=== PATIENT | female | born 1955 | race Caucasian/White ===

== ENCOUNTER → 2018-05-31 | Outpatient (CLI) | payer BC ==
--- NOTE | 2018-05-31 23:32 | BD ---
EXAMINATION TYPE: Axial Bone Density DATE OF EXAM: 05/31/2018 COMPARISON: 05.30.2016 CLINICAL HISTORY: 62 YR OLD FEMALE.....ICD-10 CODE: C50.412 BREAST CANCER, M85.8 OSTEOPENIA Height: 64.4 Weight: 214 FRAX RISK QUESTIONS: Glucocorticoids (More than 3mos): YES (Ex: prednisone, prednisolone, methylprednisolone, dexamethasone, and hydrocortisone). History of Fracture in Adulthood: YES RISK FACTORS HISTORY OF: HX OF FRACTURE TO LT GREAT TOE WITH SURGICAL REPAIR, 2017 Active: NO Diet low in dairy products/other sources of calcium: NO Postmenopausal woman: YES AT AGE 54 MEDICATIONS: Prednisone or other steroids: INHALERS FOR ASTHMA, AND CORTIZONE INJECTIONS INTO JOINTS How Long: ON AND OFF FOR YRS Thyroid Medications: CYTOMEL, FOR THYROID How Lon YRS Additional Medications: VIT D, CRESTOR, BP MEDS, CYMBALTA, WELLBUTRIN, XANAX, ADDERALL,PROVIGIL, FEMA RA, HX OF CHEMO AND RADIATION, RADIOACTIVE IODINE WITH THYROID CA, Additional History: BILAT BREAST CANCER, THYROID CANCER, BILAT MASTECTOMIES EXAM MEASUREMENTS: Bone mineral densitometry was performed using the [employer] System. Bone mineral density as measured about the Lumbar spine is: ----- L1-L4(G/cm2): 1.105 T Score Values are as follows: ----- L1: -1.4 ----- L2: -0.7 ----- L3: 0.1 ----- L4: 0.6 ----- L1-L4: -0.2 Bone mineral density has: Increased 8.2% since study of: 05.30.2016 Bone mineral density about the R hip (g/cm2): 0.929 Bone mineral density about the L hip (g/cm2): 0.899 T Score values are as follows: -----R Neck: -1.2 -----L Neck: -1.5 -----R Total: -0.6 -----L Total: -0.9 Bone mineral density has: Decreased -1.3% since study of: 05.30.2016 FRAX%s: THERE IS A 19.9% CHANCE OF A MAJOR OSTEOPOROTIC FX AND A 2.0% FOR HIP FX.....PROBABILITY O F FX IN 10 YRS TIME IMPRESSION: Osteopenia (T Score between -2.5 and -1). There is slightly increased risk of fracture and the patient may be considered for treatment. Re-Screen 2-5 years. NOTE: T-SCORE=SD OF THE YOUNG ADULT MEAN.
== END | disposition home or self-care (01) ==
LOC: RADBDWWP 15:14
PROVIDERS: ATTEND Internal Medicine Hematology & Oncology
DX: C50.412 Malignant neoplasm of upper-outer quadrant of left female breast (principal); M85.80 Other specified disorders of bone density and structure, unspecified site; Z79.890 Hormone replacement therapy
CPT/HCPCS: 77080

== ENCOUNTER → 2018-06-12 | Outpatient (CLI) | payer BC ==
--- NOTE | 2018-06-13 10:33 | XR ---
EXAMINATION TYPE: XR chest 2V DATE OF EXAM: 06/12/2018 COMPARISON: Prior chest x-ray 05/24/2016 HISTORY: Breast carcinoma TECHNIQUE: Frontal and lateral views of the chest are obtained. FINDINGS: Breast prosthesis is noted. Patient is post lap band. Surgical staple over the right lower chest. No evident pneumothorax or pleural effusion. There is eventration of the right hemidiaphragm. Cardiac mediastinal silhouette, pulmonary vascularity and ramandeep are stable. No pneumonia. Prominent l hilton volumes again noted. IMPRESSION: Postop changes. No acute cardiopulmonary disease is evident.
== END | disposition home or self-care (01) ==
LOC: RADXRMAIN 15:26
PROVIDERS: ATTEND Internal Medicine Hematology & Oncology
DX: C50.412 Malignant neoplasm of upper-outer quadrant of left female breast (principal); E07.89 Other specified disorders of thyroid; G43.909 Migraine, unspecified, not intractable, without status migrainosus; Z17.0 Estrogen receptor positive status [ER+]; Z98.890 Other specified postprocedural states
CPT/HCPCS: 71046

== ENCOUNTER → 2018-08-28 | Outpatient (CLI) | payer BC ==
--- NOTE | 2018-08-28 16:58 | US ---
EXAMINATION TYPE: US abdomen complete DATE OF EXAM: 08/28/2018 COMPARISON: NONE CLINICAL HISTORY: R74.8 Abnormal levels of other serum enzymes. abn labs, GB removed 2016, hx of micah st cancer and thyroid cancer EXAM MEASUREMENTS: Liver Length: 13.7 cm CHD: 0.4 cm Spleen: 10.8 cm Right Kidney: 9.2 x 4.2 x 3.9 cm Left Kidney: 8.9 x 3.9 x 3.7 cm Pancreas: Obscured by bowel gas Liver: wnl Gallbladder: Surgically absent Evidence for sonographic Sanchez's sign: neg CBD: Obscured by overlying bowel gas CHD: wnl Spleen: Couple of echogenic foci within the spleen may be splenic granuloma. Right Kidney: wnl Left Kidney: wnl Upper IVC: wnl Abd Aorta: Proximal portion obscured by overlying bowel gas IMPRESSION: 1. No acute ultrasound abnormality
== END | disposition home or self-care (01) ==
LOC: RADUSWWP 07:27
PROVIDERS: ATTEND Internal Medicine Endocrinology, Diabetes & Metabolism
DX: R74.8 Abnormal levels of other serum enzymes (principal)
CPT/HCPCS: 76700

== ENCOUNTER → 2019-01-08 | Outpatient (CLI) | payer BC ==
[2019-01-08 23:15] LABS: ALT 22 U/L (8-44); AST 21 U/L (13-35); Albumin/Globulin Ratio 2.61 (1.60-3.17); Alkaline Phosphatase 92 U/L (41-126); Bilirubin, Conjugated <0.20 mg/dL (0.20-0.40); Globulin 1.8 g/dL (1.6-3.3); Total Bilirubin 0.3 mg/dL (0.3-1.2); Total Protein 6.5 g/dL (6.2-8.2)
== END | disposition home or self-care (01) ==
LOC: LABWHC1 16:27
DX: R74.8 Abnormal levels of other serum enzymes (principal)
CPT/HCPCS: 36415; 80076; 82728; 83516

== ENCOUNTER → 2019-02-19 | Outpatient (CLI) | payer BC ==
--- NOTE | 2019-02-20 14:29 | XR ---
EXAMINATION TYPE: XR chest 2V DATE OF EXAM: 02/19/2019 COMPARISON: 06/12/2018 TECHNIQUE: PA and lateral views submitted. HISTORY: Pain FINDINGS: The lungs are clear and there is no pneumothorax, pleural effusion, or focal pneumonia. Right-sided pleural-based thickening noted. No overt failure. Surgical clips overlying the left breast and bilat eral hilar regions. Degenerative change of the spine. Surgical clips in the abdomen. LAP-BAND suggest ed. IMPRESSION: 1. No acute process.
== END ==
LOC: RADXRMAIN 16:50
PROVIDERS: ATTEND Physical Medicine & Rehabilitation
DX: M54.2 Cervicalgia (principal); Z85.3 Personal history of malignant neoplasm of breast
CPT/HCPCS: 71046

== ENCOUNTER → 2019-05-08 | Outpatient (CLI) | payer BC ==
[2019-05-08 19:27] LABS: Albumin 4.8 g/dL (3.80-4.90); Albumin/Globulin Ratio 2.4 (1.60-3.17); Bilirubin, Conjugated 0.2 mg/dL (0.20-0.40); Bilirubin,Unconjugated 0.4 mg/dL; Total Bilirubin 0.6 mg/dL (0.3-1.2); Total Protein 6.8 g/dL (6.2-8.2)
== END | disposition home or self-care (01) ==
LOC: LABWHC1 12:24
PROVIDERS: ATTEND Internal Medicine Gastroenterology
DX: R74.8 Abnormal levels of other serum enzymes (principal)
CPT/HCPCS: 36415; 80076; 82728; 83516

== ENCOUNTER 2019-08-28 10:46 | Day surgery (SDC) | payer BC ==
[2019-08-23 16:25] VITALS: BMI 30.4
[~2019-08-28 10:46] MED LIST: LACTATED RINGERS 1,000 ML IV SCH
[2019-08-28 11:04] VITALS: TEMP 97
[2019-08-28] MEDS ORDERED: LIDOCAINE 1% 20 ML VIAL (10MG/ML) FOR IV START INTRADERMA ONE (11:07)
[2019-08-28] MEDS ORDERED: PROPOFOL 10 MG/ML 20 ML VIAL IV ONE (12:14)
[2019-08-28] MEDS ORDERED: LIDOCAINE 1% INJ 10MG/ML (20 ML MDV) ONE (12:14)
--- NOTE | 2019-08-28 12:25 | P.PCN ---
Date of Procedure: 08/28/19 Procedure(s) Performed: BRIEF HISTORY: Patient is a 63-year-old, pleasant, female, scheduled for an upper endoscopy as a part of evaluation of intermittent dysphagia to solids and pills for the last 6 months duration. Usually episodes with large pills and sometimes with certain dry solids. She is hence scheduled for an upper endoscopy with a possible dilation.. PROCEDURE PERFORMED: Esophagogastroduodenoscopy with biopsy. PREOPERATIVE DIAGNOSIS: Dysphagia to solids for the last 6 months duration. IV sedation per anesthesia. PROCEDURE: After informed consent was obtained, the patient was brought into the endoscopy unit. IV sedation was administered by Anesthesia under continuous monitoring. Initially the Olympus GIF-140 video endoscope was inserted into the mouth. There was evidence of recurrent function noted. Esophagus intubated mild to moderate difficulty because of tightness at the cricopharyngeus.. It was gradually advanced into the stomach and duodenum and carefully examined. The bulb and the second part of the duodenum appeared normal. The scope at this time was withdrawn to the stomach, adequately insufflated with air, and upon careful examination, mucosa of the antrum had gastritis and biopsies were done from this area. The, body, cardia and the fundus appeared normal. The scope was then withdrawn into the esophagus. The GE junction was located at 39 cm from the incisors. Small sliding type hiatal hernia noted. The esophagus appeared normal. There were no erosions or ulcerations seen, no evidence of esophageal stricture and the patient tolerated the procedure well. IMPRESSION: 1. Tightness at the cricopharyngeus suggestive of oropharyngeal dysfunction wh ich appears to be the cause of dysphagia. 2. No evidence of esophageal stricture 3. Mild antral gastritis 4. Small sliding type hiatal hernia. RECOMMENDATIONS: The findings of this examination were discussed with the patient as well as a family. She was advised to follow with the biopsy results. Discussed with the patient about the pharyngeal dysfunction and body the diet modification..
[2019-08-28 12:51] VITALS: RESP 18
[2019-08-28 13:10] VITALS: BP 98/63; PULSE 74
== END 2019-08-28 13:10 | disposition home or self-care (01) ==
LOC: ORWHC2ENDO 10:46
PROVIDERS: ATTEND Internal Medicine Gastroenterology
DX: K20.0 Eosinophilic esophagitis (principal); K29.50 Unspecified chronic gastritis without bleeding; J39.2 Other diseases of pharynx; K44.9 Diaphragmatic hernia without obstruction or gangrene; C73 Malignant neoplasm of thyroid gland; F41.9 Anxiety disorder, unspecified; F32.9 Major depressive disorder, single episode, unspecified; E89.0 Postprocedural hypothyroidism; Z88.8 Allergy status to other drugs, medicaments and biological substances; Z79.890 Hormone replacement therapy; Z98.84 Bariatric surgery status; Z90.13 Acquired absence of bilateral breasts and nipples; Z90.49 Acquired absence of other specified parts of digestive tract; Z85.3 Personal history of malignant neoplasm of breast
CPT/HCPCS: 88305; 43239; J2001; J2704

== ENCOUNTER → 2020-05-04 | Outpatient (CLI) | payer BC ==
--- NOTE | 2020-05-04 14:46 | BD ---
EXAMINATION TYPE: Axial Bone Density DATE OF EXAM: 05/04/2020 COMPARISON: Prior DEXA bone scan May 31, 2018 CLINICAL HISTORY: Breast cancer and osteopenia. Height: 5 FT 4 3/4 IN Weight: 188 FRAX RISK QUESTIONS: Alcohol (3 or more units per day): NO Family History (Parent hip fracture): NO Glucocorticoids (More than 3mos): NO (Ex: prednisone, prednisolone, methylprednisolone, dexamethasone, and hydrocortisone). History of Fracture in Adulthood: YES Secondary Osteoporosis: 1. Type 1 Diabetes: NO 2. Hyperthyroidism: NO 3. Menopause before 45: NO 4. Malnutrition: NO 5. Chronic liver disease: NO Rheumatoid Arthritis: NO Current Tobacco Use: NO RISK FACTORS HISTORY OF: Surgery to Spine/Hip(right/left)/Wrist (right/left): RT TENDON REPAIR When: AGE 30 Family History of Osteoporosis: NO Active: YES Postmenopausal woman: AGE 54 MEDICATIONS: Thyroid Medications: YES Which medication: ARMOUR THYROID How Lon-23 YEARS Additional Medications: ARMOUR THYROID, DRISDOL,CRESTOR, FEMARA, IRON, COREG, COZAAR, WELLBUTRIN, SEB LIFY, LAMICTAL, ADDERALL, XANAX, Additional History: HISTORY OF THYROID REMOVED WITH RADIOACTIVE IODINE, BREAST CANCER CHEMO EXAM MEASUREMENTS: Bone mineral densitometry was performed using the [employer] System. Bone mineral density as measured about the Lumbar spine is: ----- L1-L4(G/cm2): 1.113 T Score Values are as follows: ----- L2: -1.2 ----- L3: -0.3 ----- L4: 0.0 ----- L1-L4: -0.6 Bone mineral density has: DECREASED -5.3 % since study of: 2017 Bone mineral density about the R hip (g/cm2): 0.782 Bone mineral density about the L hip (g/cm2): 0.812 T Score values are as follows: -----R Neck: -1.8 -----L Neck: -1.6 -----R Total: -1.0 -----L Total: -1.4 Bone mineral density has: DECREASED -6.5 % since study of: 2017 IMPRESSION: Osteopenia (T Score between -2.5 and -1) remains present. Bone density decreased are diminished from prior. There remains slightly increased risk of fracture and the patient may be considered for treatment. Re-Screen 2-5 years. NOTE: T-SCORE=SD OF THE YOUNG ADULT MEAN.
== END | disposition home or self-care (01) ==
LOC: RADBDWWP 10:23
PROVIDERS: ATTEND Internal Medicine Hematology & Oncology
DX: M85.80 Other specified disorders of bone density and structure, unspecified site (principal); Z79.890 Hormone replacement therapy; C50.412 Malignant neoplasm of upper-outer quadrant of left female breast
CPT/HCPCS: 77080

== ENCOUNTER → 2020-08-26 | Outpatient (CLI) | payer BC ==
--- NOTE | 2020-08-26 12:44 | US ---
EXAMINATION TYPE: US thyroid st tissue head/neck DATE OF EXAM: 08/26/2020 COMPARISON: US CLINICAL HISTORY: C73 Thyroid ca. Followup from Total thyroidectomy age 40 GLAND SIZE: Right Lobe: 2.5 x 0.7 x 0.4 cm heterogeneous thyroid bed tissue seen Overall Parenchyma: heterogenous Left Lobe:no distinct tissue was seen. Bilateral neck scanned: no evidence of lymphadenopathy. IMPRESSION: There are changes of total thyroidectomy. Heterogenous tissue is seen within the right thyroid bed li ney postsurgical in nature. Correlate clinically.
== END | disposition home or self-care (01) ==
LOC: RADUSWWP 12:04
PROVIDERS: ATTEND Internal Medicine Endocrinology, Diabetes & Metabolism
DX: C73 Malignant neoplasm of thyroid gland (principal); R93.89 Abnormal findings on diagnostic imaging of other specified body structures; E89.0 Postprocedural hypothyroidism
CPT/HCPCS: 76536

== ENCOUNTER → 2021-07-05 | Outpatient (CLI) | payer BC ==
[2021-07-05 15:19] VITALS: BP 125/83; PULSE 101; RESP 18; TEMP 98.7; BMI 26.1
--- NOTE | 2021-07-05 16:20 | P.HPBAR ---
Bariatric H&P - History & Physicial H&P Date: 07/05/21 History & Physicial: Visit/CC: follow up Patient initial contact: Initial weight: Initial weight in pounds: Height: 5 ft 5 in Initial BMI: Last weight: Current weight: 71.214 kg Current weight in pounds: 157.00 Current BMI: 26.1 [place] body weight (based on NIH guidelines): 56.699 kg Excess body weight loss: The patient is a 65 year-old F who presents for Bariatric Assessment. Patient presents today for bariatric follow-up. She is requesting have her LAP-BAND removed. She's had issues with dysphagia and GERD. She is not been seen for several years. Past Medical History Past Medical History: Cancer, GERD/Reflux, Hyperlipidemia, Osteoarthritis (OA), Pulmonary Embolus (PE), Thyroid Disorder Additional Past Medical History / Comment(s): NAUSEA, ABDOMINAL PAIN, HX of Thyroid & Breast CA-HAD CHEMO; HX OF MIGRAINES, DAMAGE DONE TO HEART R/T CHEMO- STATES NOT HTN History of Any Multi-Drug Resistant Organisms: None Reported Past Surgical History: Appendectomy, Back Surgery, Bariatric Surgery, Breast Surgery, Orthopedic Surgery Additional Past Surgical History / Comment(s): Spinal Ablation, double mastectomy and reconstructionS DORASAL AND TRAM FLAP, lab band, jaw surgery, wrist tendons reattached, laparostomy, THRYROIDECTOMY, COLONOSCOPY, EGD Past Anesthesia/Blood Transfusion Reactions: Postoperative Nausea & Vomiting (PONV) Past Psychological History: Anxiety, Depression Smoking Status: Unknown if ever smoked Past Alcohol Use History: None Reported Additional Past Alcohol Use History / Comment(s): QUIT SMOKING 1989, STARTED AGE 19, SMOKED 1PPD Past Drug Use History: None Reported - Past Family History Mother Family Medical History: Cancer Surgical - Exam Vital Signs Temp Pulse Resp BP 98.7 F 101 H 18 125/83 07/05/21 15:14 07/05/21 15:14 07/05/21 15:14 07/05/21 15:14 - General well developed, well nourished, no distress - Eyes PERRL - ENT normal pinna - Neck no masses - Respiratory normal expansion - Cardiovascular Rhythm: regular - Abdomen Abdomen: soft, non tender Bariatric Assessment & Plan Plan: GERD. Patient will undergo EGD. She will also be scheduled for removal of her Sharmila after EGD is performed. Bariatric Checklist Checklist: Plan: Checklist: EGD: 1. Hiatal hernia: 2. H. Pylori: HgbA1c: Vitamin D: Smoking: Former smoker Primary care physician referral: none Psychiatry clearance: Cardiology clearance: Sleep study: Diet journal: VTE risk score: VTE risk level: Rehab needs at discharge:
== END ==
LOC: BARWHC3 14:51
PROVIDERS: ATTEND Surgery
DX: K95.09 Other complications of gastric band procedure (principal); E78.5 Hyperlipidemia, unspecified; M19.90 Unspecified osteoarthritis, unspecified site; F41.9 Anxiety disorder, unspecified; F32.9 Major depressive disorder, single episode, unspecified; Z87.891 Personal history of nicotine dependence; Z98.84 Bariatric surgery status
CPT/HCPCS: 99211

== ENCOUNTER 2021-08-09 08:33 | Day surgery (SDC) | payer BC ==
[2021-08-05 16:05] VITALS: BMI 25.4
[2021-08-09 09:32] VITALS: TEMP 98.7
[2021-08-09] MEDS: LACTATED RINGERS 1,000 ML IV SCH ×2 (09:40→09:50)
[2021-08-09] MEDS ORDERED: LIDOCAINE 1% INJ 10MG/ML (20 ML MDV) ONE (09:51)
[2021-08-09] MEDS ORDERED: PROPOFOL 10 MG/ML 20 ML VIAL IV ONE (09:51)
--- NOTE | 2021-08-09 09:54 | P.GSHP ---
History of Present Illness H&P Date: 08/09/21 Chief Complaint: GERD This a 65-year-old female who presents today for EGD. She's had issues with GERD. Patient has. History of LAP-BAND surgery Past Medical History Past Medical History: Cancer, GERD/Reflux, Hyperlipidemia, Hypertension, Osteoarthritis (OA), Pulmonary Embolus (PE), Thyroid Disorder Additional Past Medical History / Comment(s): HX of Thyroid & Breast CA-HAD CHEMO; HX OF MIGRAINES, DAMAGE DONE TO HEART R/T CHEMO-STATES NOT HTN, PE 2013 after a surgery, dysphagia & pills get stuck in throat, "hurts to breathe", has left breast implant that is leaking, having surgery in Sep. to repair History of Any Multi-Drug Resistant Organisms: None Reported Past Surgical History: Appendectomy, Back Surgery, Bariatric Surgery, Breast Surgery, Orthopedic Surgery Additional Past Surgical History / Comment(s): Spinal Ablation, double mastectomy and reconstruction DORSAL AND TRAM FLAP, lab band, jaw surgery, wrist tendons reattached, laparotomy, THRYROIDECTOMY, COLONOSCOPY, EGD Past Anesthesia/Blood Transfusion Reactions: Postoperative Nausea & Vomiting (PONV) Additional Past Anesthesia/Blood Transfusion Reaction / Comment(s): migraine headaches after anesthesia Smoking Status: Former smoker - Past Family History Mother Family Medical History: Cancer Medications and Allergies Home Medications Medication Instructions Recorded Confirmed Type Dextroamphetamine/Amphetamine 30 mg PO DAILY 08/17/16 08/09/21 History [Adderall] Ergocalciferol (Vitamin D2) 50,000 unit PO MOTH 08/17/16 08/09/21 History [Drisdol] Levothyroxine Sodium [Synthroid] 112 mcg PO DAILY 08/17/16 08/09/21 History buPROPion HCL [Wellbutrin XL] 300 mg PO DAILY 08/17/16 08/09/21 History Liothyronine Sodium [Cytomel] 20 mcg PO DAILY 09/21/16 08/09/21 History Rosuvastatin Calcium [Crestor] 5 mg PO HS 09/21/16 08/09/21 History ALPRAZolam [Xanax] 0.5 mg PO DAILY PRN 08/23/19 08/09/21 History Losartan [Cozaar] 25 mg PO DAILY 08/23/19 08/09/21 History carvediloL [Coreg] 3.125 mg PO BID 08/23/19 08/09/21 History lamoTRIgine [LaMICtal] 100 mg PO DAILY 08/23/19 08/09/21 History lamoTRIgine [LaMICtal] 150 mg PO HS 08/23/19 08/09/21 History Omeprazole [PriLOSEC] 40 mg PO DAILY 08/05/21 08/09/21 History Raloxifene [Evista] 60 mg PO DAILY 08/05/21 08/09/21 History Allergies Allergy/AdvReac Type Severity Reaction Status Date / Time No Known Allergies Allergy Verified 08/09/21 09:25 Surgical - Exam Vital Signs Temp Pulse Resp BP Pulse Ox 98.7 F 82 18 109/74 98 08/09/21 09:30 08/09/21 09:30 08/09/21 09:30 08/09/21 09:30 08/09/21 09:30 - General well developed, well nourished, no distress - Eyes PERRL - ENT normal pinna - Neck no masses - Respiratory normal expansion - Cardiovascular Rhythm: regular - Abdomen Abdomen: soft, non tender Assessment and Plan Assessment: GERD. We'll perform EGD.
--- NOTE | 2021-08-09 10:01 | P.OP ---
Date of Procedure: 08/09/21 Preoperative Diagnosis: GERD Postoperative Diagnosis: Antral gastritis No evidence of inflammatory changes around LAP-BAND Procedure(s) Performed: EGD Anesthesia: MAC Surgeon: Gonzales Huston Pathology: other (Antrum) Condition: stable Disposition: PACU Description of Procedure: The patient's placed on the endoscopy table in the lateral position. She received IV sedation. The gastro-/oropharynx passed in the esophagus stomach. Scope was placed through the pylorus. The first and second portion of the duodenum. Normal. Scope was then brought back the antrum. The antrum was minimal inflamed. A biopsy performed. The scope was unretroflexed and remainder of the stomach appeared normal. The patient a previous placed LAP- BAND device. This was without evidence of inflammatory changes. The GE junction was at 40 cm the distal esophagus appeared normal. The proximal esophagus appeared normal. Scope was withdrawn for patient.
[2021-08-09 10:08] VITALS: RESP 16
[2021-08-09 10:24] VITALS: BP 104/70; PULSE 76
== END 2021-08-09 11:19 | disposition home or self-care (01) ==
LOC: ORWHC2ENDO 08:33
PROVIDERS: ATTEND Surgery
DX: K29.50 Unspecified chronic gastritis without bleeding (principal); K21.9 Gastro-esophageal reflux disease without esophagitis; E78.5 Hyperlipidemia, unspecified; I10 Essential (primary) hypertension; F32.9 Major depressive disorder, single episode, unspecified; M19.90 Unspecified osteoarthritis, unspecified site; Z98.84 Bariatric surgery status; T85.898A Other specified complication of other internal prosthetic devices, implants and grafts, initial encounter; Z90.13 Acquired absence of bilateral breasts and nipples; R13.10 Dysphagia, unspecified; G43.909 Migraine, unspecified, not intractable, without status migrainosus; Z87.891 Personal history of nicotine dependence; Z98.890 Other specified postprocedural states; Z86.711 Personal history of pulmonary embolism; Z85.3 Personal history of malignant neoplasm of breast; Z85.850 Personal history of malignant neoplasm of thyroid; Z92.21 Personal history of antineoplastic chemotherapy; Z80.9 Family history of malignant neoplasm, unspecified; Z79.890 Hormone replacement therapy; Z79.899 Other long term (current) drug therapy; G47.33 Obstructive sleep apnea (adult) (pediatric)
CPT/HCPCS: 88305; 43239; J2001; J2704

== ENCOUNTER → 2021-08-16 | Outpatient (CLI) | payer BC ==
[2021-08-16 14:28] VITALS: BP 120/78; PULSE 90; TEMP 98.2; BMI 25.2
--- NOTE | 2021-08-17 12:47 | P.HPBAR ---
Bariatric H&P - History & Physicial H&P Date: 08/09/21 History & Physicial: Visit/CC: egd follow up Patient initial contact: Initial weight: Initial weight in pounds: Height: 5 ft 5 in Initial BMI: Last weight: Current weight: 68.946 kg Current weight in pounds: 152.00 Current BMI: 25.2 [place] body weight (based on NIH guidelines): 56.699 kg Excess body weight loss: The patient is a 65 year-old F who presents for Bariatric Assessment. Patient presents today for follow-up. She underwent recent EGD. She's had some mild GERD. He states she feels well. Past Medical History Past Medical History: Cancer, GERD/Reflux, Hyperlipidemia, Hypertension, Osteoarthritis (OA), Pulmonary Embolus (PE), Thyroid Disorder Additional Past Medical History / Comment(s): HX of Thyroid & Breast CA-HAD CHEMO; HX OF MIGRAINES, DAMAGE DONE TO HEART R/T CHEMO-STATES NOT HTN, PE 2013 after a surgery, dysphagia & pills get stuck in throat, "hurts to breathe", has left breast implant that is leaking, having surgery in Sep. to repair History of Any Multi-Drug Resistant Organisms: None Reported Past Surgical History: Appendectomy, Back Surgery, Bariatric Surgery, Breast Surgery, Orthopedic Surgery Additional Past Surgical History / Comment(s): Spinal Ablation, double mastectomy and reconstruction DORSAL AND TRAM FLAP, lab band, jaw surgery, wrist tendons reattached, laparotomy, THRYROIDECTOMY, COLONOSCOPY, EGD Past Anesthesia/Blood Transfusion Reactions: Postoperative Nausea & Vomiting (PONV) Additional Past Anesthesia/Blood Transfusion Reaction / Comm: migraine headaches after anesthesia Past Psychological History: Anxiety, Depression Smoking Status: Former smoker Past Alcohol Use History: None Reported Additional Past Alcohol Use History / Comment(s): QUIT SMOKING 1989, STARTED AGE 19, SMOKED 1PPD Past Drug Use History: Marijuana Additional Drug Use History / Comment(s): occasional use of edibles - Past Family History Mother Family Medical History: Cancer Surgical - Exam Vital Signs Temp Pulse BP 98.2 F 90 120/78 08/16/21 14:26 08/16/21 14:26 08/16/21 14:26 - General well developed, well nourished, no distress - Eyes PERRL - ENT normal pinna - Neck no masses - Respiratory normal expansion - Cardiovascular Rhythm: regular - Abdomen Abdomen: soft, non tender Bariatric Assessment & Plan Plan: Patient has minimal GERD. She'll be observed. She'll follow-up in 4 weeks. Bariatric Checklist Checklist: Plan: Checklist: EGD: 1. Hiatal hernia: 2. H. Pylori: HgbA1c: Vitamin D: Smoking: Former smoker Primary care physician referral: none Psychiatry clearance: Cardiology clearance: Sleep study: Diet journal: VTE risk score: VTE risk level: Rehab needs at discharge:
== END ==
LOC: BARWHC3 13:52
PROVIDERS: ATTEND Surgery
DX: Z09 Encounter for follow-up examination after completed treatment for conditions other than malignant neoplasm (principal); K21.9 Gastro-esophageal reflux disease without esophagitis; E78.5 Hyperlipidemia, unspecified; I10 Essential (primary) hypertension; M19.90 Unspecified osteoarthritis, unspecified site; F32.9 Major depressive disorder, single episode, unspecified; F41.9 Anxiety disorder, unspecified; Z98.84 Bariatric surgery status; Z87.891 Personal history of nicotine dependence
CPT/HCPCS: 99211

== ENCOUNTER → 2021-11-22 | Outpatient (CLI) | payer BC ==
[2021-11-22 15:08] VITALS: BP 123/79; PULSE 108; TEMP 98.1; BMI 23.3
--- NOTE | 2021-11-23 13:21 | P.HPBAR ---
Bariatric H&P - History & Physicial H&P Date: 11/22/21 History & Physicial: Visit/CC: lap band follow up Patient initial contact: Initial weight: Initial weight in pounds: Height: 5 ft 5 in Initial BMI: Last weight: Current weight: 63.503 kg Current weight in pounds: 140.00 Current BMI: 23.3 [place] body weight (based on NIH guidelines): 56.699 kg Excess body weight loss: The patient is a 65 year-old F who presents for Bariatric Assessment. Patient has some complaints of GERD. She's had some minimal epigastric pain. She's had been seen in quite some time. Past Medical History Past Medical History: Cancer, GERD/Reflux, Hyperlipidemia, Hypertension, Osteoarthritis (OA), Pulmonary Embolus (PE), Thyroid Disorder Additional Past Medical History / Comment(s): HX of Thyroid & Breast CA-HAD CHEMO; HX OF MIGRAINES, DAMAGE DONE TO HEART R/T CHEMO-STATES NOT HTN, PE 2013 after a surgery, dysphagia & pills get stuck in throat, "hurts to breathe", has left breast implant that is leaking, having surgery in Sep. to repair History of Any Multi-Drug Resistant Organisms: None Reported Past Surgical History: Appendectomy, Back Surgery, Bariatric Surgery, Breast S urgery, Orthopedic Surgery Additional Past Surgical History / Comment(s): Spinal Ablation, double mastectomy and reconstruction DORSAL AND TRAM FLAP, lab band, jaw surgery, wrist tendons reattached, laparotomy, THRYROIDECTOMY, COLONOSCOPY, EGD Past Anesthesia/Blood Transfusion Reactions: Postoperative Nausea & Vomiting (PONV) Additional Past Anesthesia/Blood Transfusion Reaction / Comm: migraine headaches after anesthesia Smoking Status: Former smoker - Past Family History Mother Family Medical History: Cancer Surgical - Exam Vital Signs Temp Pulse BP 98.1 F 108 H 123/79 11/22/21 15:03 11/22/21 15:03 11/22/21 15:03 - General well developed, well nourished, no distress - Eyes PERRL - ENT normal pinna - Neck no masses - Respiratory normal expansion - Cardiovascular Rhythm: regular - Abdomen Abdomen: soft, non tender Bariatric Assessment & Plan Plan: Patient is some mild GERD. Her LAP-BAND was decreased in volume. 1 mL was removed from her band. She currently has 3.5 mL in the band. She'll follow-up in 4 weeks. Bariatric Checklist Checklist: Plan: Checklist: EGD: 1. Hiatal hernia: 2. H. Pylori: HgbA1c: Vitamin D: Smoking: Former smoker Primary care physician referral: none Psychiatry clearance: Cardiology clearance: Sleep study: Diet journal: VTE risk score: VTE risk level: Rehab needs at discharge:
== END ==
LOC: BARWHC3 13:39
PROVIDERS: ATTEND Surgery
DX: Z09 Encounter for follow-up examination after completed treatment for conditions other than malignant neoplasm (principal); K21.9 Gastro-esophageal reflux disease without esophagitis; E78.5 Hyperlipidemia, unspecified; Z98.84 Bariatric surgery status; I10 Essential (primary) hypertension; M19.90 Unspecified osteoarthritis, unspecified site; G43.909 Migraine, unspecified, not intractable, without status migrainosus; Z87.891 Personal history of nicotine dependence
CPT/HCPCS: 99212

== ENCOUNTER → 2022-01-10 | Outpatient (CLI) | payer BC ==
[2022-01-10 15:10] VITALS: BP 107/73; PULSE 83; RESP 16; TEMP 98.1; BMI 24.0
--- NOTE | 2022-04-08 10:40 | P.HPBAR ---
Bariatric H&P - History & Physicial H&P Date: 01/10/22 History & Physicial: Visit/CC: lap band f/u Patient initial contact: Initial weight: Initial weight in pounds: Height: 5 ft 5 in Initial BMI: Last weight: Current weight: 65.499 kg Current weight in pounds: 144.40 Current BMI: 24.0 [place] body weight (based on NIH guidelines): 56.699 kg Excess body weight loss: The patient is a 66 year-old F who presents for Bariatric Assessment. Patient presents today for follow-up. She has quit of GERD. She's actually gained 4 pounds since her last visit Past Medical History Past Medical History: Cancer, GERD/Reflux, Hyperlipidemia, Hypertension, Osteoarthritis (OA), Pulmonary Embolus (PE), Thyroid Disorder Additional Past Medical History / Comment(s): HX of Thyroid & Breast CA-HAD CHEMO; HX OF MIGRAINES, DAMAGE DONE TO HEART R/T CHEMO-STATES NOT HTN, PE 2013 after a surgery, dysphagia & pills get stuck in throat, "hurts to breathe", has left breast implant that is leaking, having surgery in Sep. to repair History of Any Multi-Drug Resistant Organisms: None Reported Past Surgical History: Appendectomy, Back Surgery, Bariatric Surgery, Breast Surgery, Orthopedic Surgery Additional Past Surgical History / Comment(s): Spinal Ablation, double mastectomy and reconstruction DORSAL AND TRAM FLAP, lab band, jaw surgery, wrist tendons reattached, laparotomy, THRYROIDECTOMY, COLONOSCOPY, EGD Past Anesthesia/Blood Transfusion Reactions: Postoperative Nausea & Vomiting (PONV) Additional Past Anesthesia/Blood Transfusion Reaction / Comm: migraine headaches after anesthesia Past Psychological History: Anxiety, Depression Smoking Status: Former smoker Past Alcohol Use History: None Reported Additional Past Alcohol Use History / Comment(s): QUIT SMOKING 1989, STARTED AGE 19, SMOKED 1PPD Past Drug Use History: Marijuana Additional Drug Use History / Comment(s): occasional use of edibles - Past Family History Mother Family Medical History: Cancer Surgical - Exam Vital Signs Temp Pulse Resp BP 98.1 F 83 16 107/73 01/10/22 15:08 01/10/22 15:08 01/10/22 15:08 01/10/22 15:08 - General well developed, well nourished, no distress - Eyes PERRL - ENT normal pinna - Neck no masses - Respiratory normal expansion - Cardiovascular Rhythm: regular - Abdomen Abdomen: soft, non tender Bariatric Assessment & Plan Plan: Status post sleeve gastrectomy. Patient's GERD we treated with Pepcid 20 mg by mouth twice a day. She will follow-up in one month. Bariatric Checklist Checklist: Plan: Checklist: EGD: 1. Hiatal hernia: 2. H. Pylori: HgbA1c: Vitamin D: Smoking: Former smoker Primary care physician referral: none Psychiatry clearance: Cardiology clearance: Sleep study: Diet journal: VTE risk score: VTE risk level: Rehab needs at discharge:
== END ==
LOC: BARWHC3 14:52
PROVIDERS: ATTEND Surgery
DX: Z09 Encounter for follow-up examination after completed treatment for conditions other than malignant neoplasm (principal); E78.5 Hyperlipidemia, unspecified; I10 Essential (primary) hypertension; M19.90 Unspecified osteoarthritis, unspecified site; G43.909 Migraine, unspecified, not intractable, without status migrainosus; Z86.711 Personal history of pulmonary embolism; Z98.84 Bariatric surgery status; F41.9 Anxiety disorder, unspecified; F32.A Depression, unspecified; Z87.891 Personal history of nicotine dependence
CPT/HCPCS: 99211

== ENCOUNTER → 2022-05-02 | Outpatient (CLI) | payer BC ==
--- NOTE | 2022-05-02 13:24 | FL ---
EXAMINATION TYPE: FL barium swallow DATE OF EXAM: 05/02/2022 CLINICAL INDICATION: 66-year-old female R13.10, dysphagia. Patient with lap band placed in 2009 and p revious fluid removed years ago. Reports choking with pills and solid consistencies. COMPARISON: 09/05/11 Total Fluoroscopy Time: 1 minute 44 seconds 39 images obtained. FINDINGS: The swallowing mechanism is normal. There is marked CP muscle hypertrophy with secondary narrowing at the level of the cervical esophagus. Otherwise, hypopharyngeal anatomy is preserved. The thoracic portion has a normal course and caliber and normal motility. The mucosa is normal and no persistent filling defect is encountered. There is passage of contrast from the esophagus into the stomach and postsurgical change of lap band demonstrated. The lap band is in appropriate position. There is no significant restriction flow acros s the lap band. The patient was placed supine and Valsalva and positional maneuvers could not elicit any gastroesopha geal reflux. IMPRESSION: 1. Marked CP muscle hypertrophy/spasm and secondary significant upper esophageal narrowing. This like ly accounts for the patient's symptoms. 2. Lap band in place. It is widely patent without any significant restriction of flow.
== END | disposition home or self-care (01) ==
LOC: RADUSWWP 08:36
PROVIDERS: ATTEND Internal Medicine Gastroenterology
DX: R13.10 Dysphagia, unspecified (principal)
CPT/HCPCS: 74220

== ENCOUNTER 2022-06-01 08:03 | Day surgery (SDC) | payer BC ==
[2022-05-31 09:40] VITALS: BMI 24.1
[~2022-06-01 08:03] MED LIST changes: +LIDOCAINE 1% (10MG/ML) FOR IV START INTRADERMA PRN
[2022-06-01 08:49] VITALS: RESP 16; TEMP 98.3
[2022-06-01] MEDS ORDERED: PROPOFOL 10 MG/ML 20 ML VIAL IV ONE (09:25)
[2022-06-01] MEDS ORDERED: LIDOCAINE 2% INJ 20 MG/ML (2 ML VIAL) ONE (09:25)
--- NOTE | 2022-06-01 09:37 | P.PCN ---
Date of Procedure: 06/01/22 Procedure(s) Performed: BRIEF HISTORY: Patient is a 66-year-old, pleasant, white female with history of gastric lap band surgery several years ago. She is presently complaining of intermittent dysphagia to solids. Currently and omeprazole 20 mg daily as needed. She is scheduled for an upper endoscopy with possible dilation today. PROCEDURE PERFORMED: Esophagogastroduodenoscopy with biopsy. PREOPERATIVE DIAGNOSIS: Intermittent dysphagia to solids of GERD. IV sedation per anesthesia. PROCEDURE: After informed consent was obtained, the patient was brought into the endoscopy unit. IV sedation was administered by Anesthesia under continuous monitoring. Initially the Olympus GIF-140 video endoscope was inserted into the mouth. Esophagus intubated without any difficulty. It was gradually advanced into the stomach and duodenum and carefully examined. The bulb and the second part of the duodenum appeared normal. The scope at this time was withdrawn to the stomach, adequately insufflated with air, and upon careful examination, mucosa of the antrum, had mild gastritis and biopsies were done from this area. The body, cardia and the fundus appeared normal. There is evidence of previous lap band surgery in the proximal stomach. There was a stricture identified. The scope was then withdrawn into the esophagus. The GE junction was located at 39 cm from the incisors. The esophagus appeared normal. There were no erosions or ulcerations seen and biopsies were done from the distal esophagus and the patient tolerated the procedure well. IMPRESSION: 1. Normal-appearing esophagus with no evidence of esophagitis or esophageal stricture. 2. Evidence of gastric lap band surgery. 3. Mild antral gastritis RECOMMENDATIONS: The findings of this examination were discussed with the patient as well as a family. She was advised to follow with the biopsy results. Advised to use omeprazole as needed based on symptoms..
[2022-06-01] MEDS ORDERED: IV FLUID CONTINUATION 1,000 ML IV ONE (09:38)
[2022-06-01 09:57] VITALS: BP 101/55; PULSE 69
== END 2022-06-01 10:27 | disposition home or self-care (01) ==
LOC: ORWHC2ENDO 08:03
PROVIDERS: ATTEND Internal Medicine Gastroenterology
DX: K29.50 Unspecified chronic gastritis without bleeding (principal); K31.A11 Gastric intestinal metaplasia without dysplasia, involving the antrum; Z98.84 Bariatric surgery status; K21.9 Gastro-esophageal reflux disease without esophagitis; E78.5 Hyperlipidemia, unspecified; G47.33 Obstructive sleep apnea (adult) (pediatric); E07.9 Disorder of thyroid, unspecified; M19.90 Unspecified osteoarthritis, unspecified site; G43.909 Migraine, unspecified, not intractable, without status migrainosus; Z86.711 Personal history of pulmonary embolism; Z85.3 Personal history of malignant neoplasm of breast; Z85.850 Personal history of malignant neoplasm of thyroid; Z79.899 Other long term (current) drug therapy; Z87.891 Personal history of nicotine dependence; Z80.9 Family history of malignant neoplasm, unspecified
CPT/HCPCS: 43239; J2704; J2001; 88305

== ENCOUNTER → 2022-09-19 | Outpatient (CLI) | payer BC ==
[2022-09-19 15:01] VITALS: BP 134/89; PULSE 84; TEMP 98.4; BMI 24.1
--- NOTE | 2022-09-19 15:06 | P.HPBAR ---
Bariatric H&P - History & Physicial H&P Date: 09/19/22 History & Physicial: Visit/CC: lap band Patient initial contact: Initial weight: Initial weight in pounds: Height: 5 ft 5 in Initial BMI: Last weight: Current weight: 65.771 kg Current weight in pounds: 145.00 Current BMI: 24.1 [place] body weight (based on NIH guidelines): 56.699 kg Excess body weight loss: The patient is a 66 year-old F who presents for Bariatric Assessment. Patient resents today for LAP-BAND follow-up. She has complaints of GERD. She wishes to have fluid removed from her band. Past Medical History Past Medical History: Cancer, GERD/Reflux, Hyperlipidemia, Osteoarthritis (OA), Pulmonary Embolus (PE), Sleep Apnea/CPAP/BIPAP, Thyroid Disorder Additional Past Medical History / Comment(s): Thyroid Cancer 1995 with radiation tx & radioactive iodine., Breast Cancer 2012 with chemo., migraines., denies htn- states meds r/t chemo., PE 2013 after breast surgery., chronic constipation, sleep apnea-not using machine since weight loss., dysphagia., pt has lap band with fluid., reconstructive breast surgery 05/05/22 with tissue from stomach used- states wearing bra and abdominal binder. History of Any Multi-Drug Resistant Organisms: None Reported Past Surgical History: Appendectomy, Bariatric Surgery, Breast Surgery, Orthopedic Surgery Additional Past Surgical History / Comment(s): Spinal Ablation, double mastectomy and reconstruction DORSAL AND TRAM FLAP, lab band (Dr Huston)., jaw surgery for bone infection., wrist tendons reattached, laparotomy, yroidectomy, COLONOSCOPY, EGD., reconstructive breast surgeries- last surgery was may 05 2022 with tissue from abd. Past Anesthesia/Blood Transfusion Reactions: Postoperative Nausea & Vomiting (PONV) Additional Past Anesthesia/Blood Transfusion Reaction / Comm: migraine headaches after anesthesia Past Psychological History: Anxiety, Depression Smoking Status: Former smoker Past Alcohol Use History: None Reported Additional Past Alcohol Use History / Comment(s): QUIT SMOKING 1989, STARTED AGE 19, SMOKED 1PPD Past Drug Use History: Marijuana Additional Drug Use History / Comment(s): no current use - Past Family History Mother Family Medical History: Cancer Surgical - Exam Vital Signs Temp Pulse BP 98.4 F 84 134/89 09/19/22 14:58 09/19/22 14:58 09/19/22 14:58 - General well developed, well nourished, no distress - Eyes PERRL - ENT normal pinna, normal nares - Neck no masses - Respiratory normal expansion - Cardiovascular Rhythm: regular - Abdomen Abdomen: soft, non tender Bariatric Assessment & Plan Plan: Patient LAP-BAND was adjusted. She had 3 mL in the band. She currently is 0.5 mL remaining. She will follow-up in one month. Bariatric Checklist Checklist: Plan: Checklist: EGD: 1. Hiatal hernia: 2. H. Pylori: HgbA1c: Vitamin D: Smoking: Former smoker Primary care physician referral: none Psychiatry clearance: Cardiology clearance: Sleep study: Diet journal: VTE risk score: VTE risk level: Rehab needs at discharge:
== END ==
LOC: BARWHC3 14:24
PROVIDERS: ATTEND Surgery
DX: Z48.815 Encounter for surgical aftercare following surgery on the digestive system (principal); Z98.84 Bariatric surgery status; K21.9 Gastro-esophageal reflux disease without esophagitis; E78.5 Hyperlipidemia, unspecified; M19.90 Unspecified osteoarthritis, unspecified site; G47.30 Sleep apnea, unspecified; Z99.89 Dependence on other enabling machines and devices; E07.9 Disorder of thyroid, unspecified; Z87.891 Personal history of nicotine dependence; Z79.890 Hormone replacement therapy
CPT/HCPCS: 99212

== ENCOUNTER → 2022-10-17 | Outpatient (CLI) | payer BC ==
[2022-10-17 15:08] VITALS: BP 138/87; PULSE 76; TEMP 98.9; BMI 23.9
--- NOTE | 2022-10-31 15:39 | P.HPBAR ---
Bariatric H&P - History & Physicial H&P Date: 10/17/22 History & Physicial: Visit/CC: lap band F/U Patient initial contact: Initial weight: Initial weight in pounds: Height: 5 ft 5 in Initial BMI: Last weight: Current weight: 65.317 kg Current weight in pounds: 144.00 Current BMI: 23.9 [place] body weight (based on NIH guidelines): 56.699 kg Excess body weight loss: The patient is a 66 year-old F who presents for Bariatric Assessment. Patient resents today for bariatric follow-up. She's had some mild GERD. Past Medical History Past Medical History: Cancer, GERD/Reflux, Hyperlipidemia, Osteoarthritis (OA), Pulmonary Embolus (PE), Sleep Apnea/CPAP/BIPAP, Thyroid Disorder Additional Past Medical History / Comment(s): Thyroid Cancer 1995 with radiation tx & radioactive iodine., Breast Cancer 2012 with chemo., migraines., denies htn- states meds r/t chemo., PE 2013 after breast surgery., chronic constipation, sleep apnea-not using machine since weight loss., dysphagia., pt has lap band with fluid., reconstructive breast surgery 05/05/22 with tissue from stomach used- states wearing bra and abdominal binder. History of Any Multi-Drug Resistant Organisms: None Reported Past Surgical History: Appendectomy, Bariatric Surgery, Breast Surgery, Orthopedic Surgery Additional Past Surgical History / Comment(s): Spinal Ablation, double mastectomy and reconstruction DORSAL AND TRAM FLAP, lab band (Dr Huston)., jaw surgery for bone infection., wrist tendons reattached, laparotomy, Thyroidectomy, COLONOSCOPY, EGD., reconstructive breast surgeries- last surgery was may 05 2022 with tissue from abd. Past Anesthesia/Blood Transfusion Reactions: Postoperative Nausea & Vomiting (PONV) Additional Past Anesthesia/Blood Transfusion Reaction / Comm: migraine headaches after anesthesia Past Psychological History: Anxiety, Depression Smoking Status: Former smoker Past Alcohol Use History: None Reported Additional Past Alcohol Use History / Comment(s): QUIT SMOKING 1989, STARTED AGE 19, SMOKED 1PPD Past Drug Use History: Marijuana Additional Drug Use History / Comment(s): no current use - Past Family History Mother Family Medical History: Cancer Surgical - Exam Vital Signs Temp Pulse BP 98.9 F 76 138/87 10/17/22 15:04 10/17/22 15:04 10/17/22 15:04 - General well developed, well nourished, no distress - Eyes PERRL - ENT normal pinna - Neck no masses - Respiratory normal expansion - Cardiovascular Rhythm: regular - Abdomen Abdomen: soft, non tender Bariatric Assessment & Plan Plan: Status post sleeve gastric. Patient's GERD is minimal and will be observed. She'll follow-up in 4 weeks. Bariatric Checklist Checklist: Plan: Checklist: EGD: 1. Hiatal hernia: 2. H. Pylori: HgbA1c: Vitamin D: Smoking: Former smoker Primary care physician referral: none Psychiatry clearance: Cardiology clearance: Sleep study: Diet journal: VTE risk score: VTE risk level: Rehab needs at discharge:
== END | disposition home or self-care (01) ==
LOC: BARWHC3 14:03
PROVIDERS: ATTEND Surgery
DX: E66.01 Morbid (severe) obesity due to excess calories (principal); K21.9 Gastro-esophageal reflux disease without esophagitis; E78.5 Hyperlipidemia, unspecified; G47.30 Sleep apnea, unspecified; E07.9 Disorder of thyroid, unspecified; I26.99 Other pulmonary embolism without acute cor pulmonale; M19.90 Unspecified osteoarthritis, unspecified site; Z98.84 Bariatric surgery status; Z68.23 Body mass index [BMI] 23.0-23.9, adult; Z87.891 Personal history of nicotine dependence; Z85.3 Personal history of malignant neoplasm of breast
CPT/HCPCS: 99211

== ENCOUNTER → 2024-03-13 | Outpatient (CLI) | payer OTHER ==
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
== END | disposition home or self-care (01) ==
LOC: RADCTMAIN 06:55
PROVIDERS: ATTEND Family Medicine
DX: S22.21XA Fracture of manubrium, initial encounter for closed fracture (principal); Z98.82 Breast implant status
CPT/HCPCS: 71260; Q9967